=== PATIENT | female | born 1950 | race Caucasian/White ===

== ENCOUNTER → 2017-06-06 | Outpatient (CLI) | payer MEDICARE ==
--- NOTE | 2017-06-09 09:58 | MM ---
Reason for exam: screening (asymptomatic). Last mammogram was performed 1 year and 7 months ago. History: Patient is postmenopausal. Family history of breast cancer in mother at age 60. Benign cyst aspiration of the left breast, 1989. Physical Findings: A clinical breast exam by your physician is recommended on an annual basis and results should be correlated with mammographic findings. MG 3D Screening Mammo W/Cad Bilateral CC and MLO view(s) were taken. Prior study comparison: November 16, 2015, bilateral MG 3d screening mammo w/cad. October 10, 2014, bilateral MG diagnostic mammo w CAD [facility]. There are scattered fibroglandular densities. Finding: There are typically benign round calcifications in both breasts. There is no discrete abnormality. ASSESSMENT: Benign, BI-RAD 2 RECOMMENDATION: Routine screening mammogram of both breasts in 1 year.
== END | disposition home or self-care (01) ==
LOC: RADMAMWWP 11:05
PROVIDERS: ATTEND Family Medicine
DX: Z12.31 Encounter for screening mammogram for malignant neoplasm of breast (principal)
CPT/HCPCS: 77063; 77067

== ENCOUNTER → 2017-07-25 | Outpatient (CLI) | payer MEDICARE | END | disposition home or self-care (01) | LOC: MMGSC 11:52 | PROVIDERS: ATTEND Family Medicine | DX: R31.9 Hematuria, unspecified (principal) | CPT/HCPCS: 87086 ==

== ENCOUNTER → 2017-07-30 | Outpatient (CLI) | payer MEDICARE ==
[2017-07-30 14:49] LABS: Blood Urea Nitrogen 20 mg/dL (7-17)
--- NOTE | 2017-07-30 17:13 | CT ---
EXAMINATION TYPE: CT chest abdomen w con DATE OF EXAM: 07/30/2017 COMPARISON: NONE HISTORY: Pulmonary nodule, Rt renal cyst CT DLP: 1955 mGycm. Automated Exposure Control for Dose Reduction was Utilized. CONTRAST: CT scan of the thorax, abdomen performed with IV Contrast, patient injected with 100 mL of Isovue 300 . FINDINGS: LUNGS: The lungs are stable, there is no concerning parenchymal mass or nodule identified, findings a re benign. There is no pleural effusion or pneumothorax seen. The tracheobronchial tree is patent. MEDIASTINUM: There are no greater than 1 cm hilar or mediastinal lymph nodes. No pericardial effusi on is seen. OTHER: Enlarged right low dense thyroid nodule noted incidentally. LIVER/GB: No liver shows low atten uation likely due to fatty infiltration, the liver is borderline enlarged. PANCREAS: No significant abnormality is seen. SPLEEN: No significant abnormality is seen. ADRENALS: Nodular appearance of left adrenal gland is stable. KIDNEYS: There is a cortical cyst prese nt within the right kidney measuring approximately 3.3 cm in greatest dimension. Smaller cyst present posteriorly measures 12 mm BOWEL: No significant abnormality is seen. GENITAL ORGANS: No gross abnormality seen. LYMPH NODES: No greater than 1cm abdominal or pelvic lymph nodes are appreciated. OSSEOUS STRUCTURES: Sclerotic density particularly joints compatible stress images. OTHER: No signifi cant additional abnormality is seen. IMPRESSION: Essentially stable exam.
== END ==
LOC: RADCTMAIN 14:13
PROVIDERS: ATTEND Family Medicine
DX: N28.1 Cyst of kidney, acquired (principal); R91.1 Solitary pulmonary nodule
CPT/HCPCS: 82565; 84520; 71260; 74160; 36415; Q9967

== ENCOUNTER → 2017-08-08 | Outpatient (CLI) | payer MEDICARE ==
--- NOTE | 2017-08-08 13:28 | US ---
EXAMINATION TYPE: US thyroid st tissue head/neck DATE OF EXAM: 08/08/2017 COMPARISON: CT CLINICAL HISTORY: E04.1 thyroid nodule. Thyroid nodule seen, right lobe on CT Large pt body habitus, unable to lie flat, with cough....difficult exam GLAND SIZE: Right Lobe: 4.2 x 2.9 x 2.9 cm Overall Parenchyma: heterogenous Left Lobe: 3.4 x 1.3 x 1.3 cm Overall Parenchyma: heterogeneous Isthmus Thickness: 0.3 cm NODULES RIGHT: # of nodules measured on right: 1 1. 3.2 X 2.4 x 2.3 cm isoechoic solid nodule at the mid pole with well-defined margins; This nodule is wider than tall and shows intranodular vascularity. Prior size: No prior US Bilateral neck scanned, no evidence of lymphadenopathy. Large right lobe thyroid nodule IMPRESSION: Solid and somewhat heterogenous nodule right thyroid lobe. Consider tissue diagnosis.
== END | disposition home or self-care (01) ==
LOC: RADUSWWP 13:01
PROVIDERS: ATTEND Family Medicine
DX: E04.1 Nontoxic single thyroid nodule (principal)
CPT/HCPCS: 76536

== ENCOUNTER 2017-08-28 09:48 | Day surgery (SDC) | payer MEDICARE ==
[2017-08-28 10:08] VITALS: BP 156/67; PULSE 81; RESP 20; TEMP 97.8
--- NOTE | 2017-08-28 13:15 | US ---
EXAMINATION TYPE: US FNA thyroid DATE OF EXAM: 08/28/2017 COMPARISON: NONE HISTORY: Thyroid nodule. Maximal barrier technique was utilized. After informed consent, skin overlying the lesion was locali zed with ultrasound and the overlying skin prepped and draped. Ultrasound was utilized using sterile technique. Lidocaine was used for local anesthesia. Five passes with a 25-gauge needle were made int o the nodule and aspirated specimen was submitted to cytology. Following the procedure hemostasis ac hieved. No immediate complication. The patient discharged in stable condition. IMPRESSION: STATUS POST ULTRASOUND GUIDED FINE NEEDLE ASPIRATION OF THYROID NODULE, PATHOLOGY IS PEND ING. THIS PROCEDURE WAS PERFORMED BY THE UNDERSIGNED.
== END 2017-08-28 11:25 | disposition home or self-care (01) ==
LOC: RADPROMAIN 09:48
PROVIDERS: ATTEND Otolaryngology
DX: E04.1 Nontoxic single thyroid nodule (principal)
CPT/HCPCS: 10022; 76942; 88173; 88305

== ENCOUNTER → 2018-03-02 | Outpatient (CLI) | payer MEDICARE ==
--- NOTE | 2018-03-02 11:15 | US ---
EXAMINATION TYPE: US thyroid st tissue head/neck DATE OF EXAM: 03/02/2018 COMPARISON: US 08/28/2017 CLINICAL HISTORY: E04.1 Thyroid nodule Rt. Prior right thyroid FNA GLAND SIZE: Right Lobe: 4.4 x 2.6 x 2.7 cm Overall Parenchyma: heterogenous Left Lobe: 3.5 x 1.2 x 1.5 cm Overall Parenchyma: heterogeneous Isthmus Thickness: 0.6 cm NODULES RIGHT: # of nodules measured on right: 1 1. 3.2 X 2.4 x 2.7 cm isoechoic mixed nodule at the mid and lower pole with well-defined margins. This nodule is taller than wide and shows intranodular vascularity. Prior size: 3.2 x 2.4 x 2.3 cm LEFT: # of nodules measured on left: 0 ISTHMUS: # of nodules measured in the isthmus: 0 Bilateral neck scanned: no evidence of lymphadenopathy. IMPRESSION: Stable nonspecific right-sided thyroid nodularity.
== END | disposition home or self-care (01) ==
LOC: RADUSWWP 10:11
PROVIDERS: ATTEND Otolaryngology
DX: E04.1 Nontoxic single thyroid nodule (principal)
CPT/HCPCS: 76536

== ENCOUNTER → 2018-07-07 | Outpatient (CLI) | payer MEDICARE ==
[2018-07-07 13:04] VITALS: BP 181/91; PULSE 72; RESP 18; TEMP 96.9; BMI 48.0
--- NOTE | 2018-07-07 15:02 | P.HPOB ---
History of Present Illness H&P Date: 07/07/18 Chief Complaint: The patient is here for her routine gynecologic exam and mammogram. This is a 68-year-old with an LMP of 2000. The patient is here to establish with this office. She states her last pelvic exam was in 2016. The patient is without gynecologic complaints and denies any postmenopausal bleeding. Review of Systems The patient states she has gained about 20 pounds over the last 2 years. She denies respiratory, cardiac, or G.I. problems. She denies maltreatment or falling. : occasionally she has to get to the bathroom right away or she may leak. She avoids leakage by avoiding prior to traveling or attending an event. Past Medical History Past Medical History: Diabetes Mellitus (Type II diabetes), Hearing Disorder / Deafness, Hyperlipidemia, Hypertension, Musculoskeletal Disorder, Osteoarthritis (OA), Sleep Apnea/CPAP/BIPAP Additional Past Medical History / Comment(s): OCC VERTIGO. USES CPAP. VARICOSE VEINS. LT KNEE INJURY. Seasonal allergies. Overweight. Renal, adrenal, and thyroid nodules which are followed conservatively. PAST ENVIRONMENTAL ENGINEER HISTORY: She has no history of STDs. History of Any Multi-Drug Resistant Organisms: None Reported Past Surgical History: Cholecystectomy, Heart Catheterization, Orthopedic Surgery (Knee surgery), Tonsillectomy, Tubal Ligation Additional Past Surgical History / Comment(s): D&C. Colonoscopy 2018(2nd). Past Anesthesia/Blood Transfusion Reactions: Motion Sickness, Postoperative Nausea & Vomiting (PONV) Additional Past Anesthesia/Blood Transfusion Reaction / Comment(s): VERY SEVERE PONV. Past Psychological History: Depression (Mild) Smoking Status: Former smoker (Quit 2010) Past Alcohol Use History: Occasional (20 per year) Past Drug Use History: None Reported Additional History: She has been since 1966 and is retired. - Past Family History Mother Family Medical History: Cancer Additional Family Medical History / Comment(s): Breast cancer. Brother(s) Family Medical History: Cancer, CVA/TIA Additional Family Medical History / Comment(s): Lung cancer. Father Additional Family Medical History / Comment(s): Alcohol abuse. Medications and Allergies Home Medications Medication Instructions Recorded Confirmed Type Aspirin 81 mg PO BID 12/05/14 07/07/18 History Benazepril HCl 20 mg PO DAILY 12/05/14 07/07/18 History Metoprolol Succinate [Toprol XL] 50 mg PO HS 12/05/14 07/07/18 History Pravastatin Sodium [Pravachol] 20 mg PO HS 12/05/14 07/07/18 History Loratadine [Alavert] 10 mg PO DAILY 08/25/17 07/07/18 History Naproxen 250 mg PO BID PRN 08/25/17 07/07/18 History metFORMIN HCL [Glucophage Xr] 500 mg PO DAILY 08/25/17 07/07/18 History Allergies Allergy/AdvReac Type Severity Reaction Status Date / Time hydromorphone HCl Allergy Nausea & Verified 07/07/18 12:59 [From Dilaudid] Vomiting Exam Vital Signs Temp Pulse Resp BP Pulse Ox 07/07/18 13:01 96.9 F L 72 18 181/91 97 Intake and Output 07/06/18 07/07/18 07/07/18 22:59 06:59 14:59 Other: Weight 127.006 kg Height 5'4", weight 280 pounds, BMI 48.1. This is a well-developed well-nourished obese white female who is alert and oriented times 3 in no acute distress. HEENT: Within normal limits. NECK: Supple without mass or thyromegaly. CHEST AND LUNGS: Clear to auscultation. HEART: Regular rate and rhythm. BREASTS: Are without mass or discharge. AXILLARY EXAM: Negative for adenopathy. BACK: Negative for CVA tenderness. ABDOMEN: Soft, obese, nontender, without palpable masses. PELVIC EXAM: Normal external genitalia with mild atrophy. Cervix and vagina appear normal mild atrophy. There is no unusual discharge. There is no evidence of prolapse. The uterus is midposition, nongravid size and nontender. There are no palpable adnexal masses or tenderness. Bimanual examination is somewhat limited secondary to her size. RECTAL EXAM: rectovaginal vaginal exam is negative for mass or tenderness and is negative for occult blood. EXTREMITIES: Nontender. IMPRESSION: 1. 68-year-old menopausal female with normal gynecologic exam. 2. Obesity. 3. Elevated blood pressure with history of chronic hypertension. PLAN: 1. Pap smear was performed. 2. Self breast awareness was discussed with the patient. 3. Screening mammogram will be done today. 4. Osteoporosis prevention was discussed. I have stressed the importance of adequate calcium, vitamin D and regular exercise. Recommended amounts of calcium and vitamin D were also discussed. Bone density testing was done on and was normal. We will plan on repeating bone density testing in 2020. 5. She did not get a flu shot this year and make it one next fall. 6. She is aware of her elevated blood pressure today. She states she is able to check her own blood pressure at home and have recommended that she do this on a regular basis. She will follow up with her primary care physician if the blood pressure is consistently elevated. 7. She will return in one year.
--- NOTE | 2018-07-09 08:48 | MM ---
Reason for exam: screening (asymptomatic). Last mammogram was performed 1 year and 1 month ago. History: Patient is postmenopausal. Family history of breast cancer in mother at age 60. Benign cyst aspiration of the left breast, 1989. Physical Findings: A clinical breast exam by your physician is recommended on an annual basis and results should be correlated with mammographic findings. MG 3D Screening Mammo W/Cad Bilateral CC and MLO view(s) were taken. Prior study comparison: June 06, 2017, bilateral MG 3d screening mammo w/cad. November 16, 2015, bilateral MG 3d screening mammo w/cad. There are scattered fibroglandular densities. No significant changes when compared with prior studies. ASSESSMENT: Benign, BI-RAD 2 RECOMMENDATION: Routine screening mammogram of both breasts in 1 year.
== END ==
LOC: WWCWWP 12:25
PROVIDERS: ATTEND Obstetrics & Gynecology
DX: Z12.31 Encounter for screening mammogram for malignant neoplasm of breast (principal)
CPT/HCPCS: 77063; 77067

== ENCOUNTER → 2018-09-16 | Outpatient (CLI) | payer MEDICARE ==
--- NOTE | 2018-09-16 11:53 | US ---
EXAMINATION TYPE: US thyroid st tissue head/neck DATE OF EXAM: 09/16/2018 COMPARISON: NONE CLINICAL HISTORY: 68-year-old female E04.1 thyroid nodule. TECHNIQUE: Multiple sonographic images of the thyroid are obtained. FINDINGS: GLAND SIZE: Right Lobe: 4.6 x 2.7 x 3.0 cm Overall Parenchyma: heterogenous Left Lobe: 3.1 x 0.9 x 1.4 cm Overall Parenchyma: homogeneous Isthmus Thickness: 0.3 cm NODULES RIGHT: # of nodules measured on right: 1 1. 3.4 X 2.6 x 2.5 cm isoechoic mixed nodule at the mid/lower pole with well-defined margins; . Th is nodule is wider than tall and shows intranodular vascularity. Prior size: 3.2 x 2.7 x 2.4 cm LEFT: # of nodules measured on left: 0 ISTHMUS: # of nodules measured in the isthmus: 0 Bilateral neck scanned, no evidence of lymphadenopathy. IMPRESSION: A large 3.4 cm heterogeneous nodule in the right lobe remains relatively stable from 03/02/2018.
== END | disposition home or self-care (01) ==
LOC: RADUSWWP 10:32
PROVIDERS: ATTEND Otolaryngology
DX: E04.1 Nontoxic single thyroid nodule (principal)
CPT/HCPCS: 76536

== ENCOUNTER → 2018-09-16 | Outpatient (CLI) | payer MEDICARE ==
--- NOTE | 2018-09-16 12:22 | XR ---
EXAMINATION TYPE: XR KUB DATE OF EXAM: 09/16/2018 COMPARISON: NONE HISTORY: Left-sided kidney stone TECHNIQUE: One view abdominal series FINDINGS: The osseous structures are intact. The bowel gas pattern is nonspecific. Hypertrophic and degenerati ve change of the spine noted. Arthropathy of the hips. Calcification the pelvis appears vascular. Kidneys: No suspicious calcifications overlying the renal outlines. Surgical clips in the gallbladder fossa. IMPRESSION: 1. No definite suspicious calcification overlying the kidneys.
== END | disposition home or self-care (01) ==
LOC: RADXRMAIN 11:24
PROVIDERS: ATTEND Urology
DX: N20.2 Calculus of kidney with calculus of ureter (principal)
CPT/HCPCS: 74018

== ENCOUNTER → 2019-10-19 | Outpatient (CLI) | payer MEDICARE ==
--- NOTE | 2019-10-19 13:10 | US ---
EXAMINATION TYPE: US thyroid st tissue head/neck DATE OF EXAM: 10/19/2019 COMPARISON: US 09/16/2018 CLINICAL HISTORY: E04.1 thyroid nodule. GLAND SIZE: Right Lobe: 3.9 x 2.3 x 2.6 cm Overall Parenchyma: heterogenous Left Lobe: 3.4 x 1.3 x 1.2 cm Overall Parenchyma: homogeneous Isthmus Thickness: 0.2 cm NODULES RIGHT: # of nodules measured on right: 1 1. 3.5 X 2.1 x 2.5 cm hypoechoic mixed nodule at the mid pole with well-defined margins. This nodu le is wider than tall and shows intranodular vascularity. Prior size: 3.4 x 2.6 x 2.5 cm LEFT: # of nodules measured on left: 0 ISTHMUS: # of nodules measured in the isthmus: 0 Bilateral neck scanned, no evidence of lymphadenopathy. IMPRESSION: No interval increase in an overall size of the right thyroid nodule 3 no new nodules seen .
== END | disposition home or self-care (01) ==
LOC: RADUSWWP 12:26
PROVIDERS: ATTEND Otolaryngology
DX: E04.1 Nontoxic single thyroid nodule (principal)
CPT/HCPCS: 76536

== ENCOUNTER → 2020-04-07 | Outpatient (CLI) | payer MEDICARE ==
--- NOTE | 2020-04-07 12:49 | CTL ---
EXAMINATION TYPE: CT Low Dose Lung DATE OF EXAM ORDERED: 04/07/2020 COMPARISON: 12/07/2015 HISTORY: . Low Dose CT Lung Screening CT DLP: [address] CTDI: 3.29 mGy IV CONTRAST USED: None. SCREENING VISIT: First visit COMPARISON: None. TECHNIQUE: Low dose computed tomography scan was performed through the chest at 1 millimeter thick se ctions and reconstructed images in the coronal plane at [address] DIAGNOSTIC QUALITY: Suboptimal. Limiting streak artifact noted. FINDINGS: LUNG NODULES: There is a new 1 cm pulmonary nodule left upper lobe image 142. Stable 4 mm solid nodul e right upper lobe is noted. Limited evaluation however given the aforementioned technical limitation s. LUNGS: COPD: Severity: None Fibrosis: Severity:None Lymph nodes: None Other findings: None RIGHT PLEURAL SPACE: Effusion: None Calcification: None Thickening: None Pneumothorax: None LEFT PLEURAL SPACE: Effusion: None Calcification: None Thickening: None Pneumothorax: None HEART: Heart Size: Mildly enlarged Coronary calcification: Mild Pericardial effusion: None OTHER FINDINGS: Upper abdomen: Left adrenal nodule is again identified and may reflect adenoma. Bony thorax: Degenerative changes Supraclavicular region: No significant abnormalityOther: No significant abnormalityI IMPRESSION: 1. Limited study as noted above given tube limiting artifact. 2. New solid nodule left upper lobe. Consider [address] or PET/CT for further evaluation. FOLLOW UP CT CHEST CT LUNG RAD: LUNG RAD CATEGORY suspicious 4A
== END | disposition home or self-care (01) ==
LOC: RADCTMAIN 12:06
PROVIDERS: ATTEND Family Medicine
DX: Z12.2 Encounter for screening for malignant neoplasm of respiratory organs (principal); R91.1 Solitary pulmonary nodule; Z87.891 Personal history of nicotine dependence

== ENCOUNTER → 2020-06-24 | Outpatient (CLI) | payer MEDICARE ==
--- NOTE | 2020-06-30 08:49 | PE ---
EXAMINATION TYPE: PET CT fusion skull to thigh DATE OF EXAM: 06/24/2020 COMPARISON: Low-dose CT 04/07/2020 Prior PET/CT: None HISTORY: Solitary pulmonary nodule TECHNIQUE: Following the intravenous administration of 12.43 mCi of F-18 FDG, whole body images are performed from the skull base to the midthigh. Images are reviewed on the computer in the coronal, a xial, and sagittal planes. Reconstructed rotating images are created on independent workstation and reviewed on the computer. A localization and attenuation correction CT is performed in conjunction with the PET scan. DLP: 588.02 mGycm SCAN: Initial Blood glucose: 157 mg/dL Average Mediastinum SUV: 1.62 Average Liver SUV: 2. FINDINGS: NECK: No abnormal uptake THORAX: The nodule within the lingular base near the major fissure, image 101, has an SUV value 0.69. No additional nodules are identified. No suspicious radiotracer within the thorax is evident. No me diastinal or hilar nodes are evident. ABDOMEN: No abnormal uptake PELVIS: No abnormal uptake OSSEOUS STRUCTURES: No abnormal LOCALIZATION CT: A 0.9 cm lingular nodule remains present. Series 3 image 101 COMPARISON: Nodule appears stable from comparison IMPRESSION: 1. No suspicious uptake to suggest neoplasm. 2. Persistent nodule within the lingula can be followed by CT chest.
== END | disposition home or self-care (01) ==
LOC: RADPETMAIN 09:05
PROVIDERS: ATTEND Family Medicine
DX: R91.1 Solitary pulmonary nodule (principal)
CPT/HCPCS: 78815; A9552

== ENCOUNTER → 2020-12-04 | Outpatient (CLI) | payer MEDICARE ==
--- NOTE | 2020-12-04 18:40 | US ---
EXAMINATION TYPE: US thyroid st tissue head/neck DATE OF EXAM: 12/04/2020 COMPARISON: 10/19/2019 US CLINICAL HISTORY: 70-year-old female E04.1 Thyroid nodule. GLAND SIZE: Right Lobe: 3.9 x 2.4 x 2.7 cm Overall Parenchyma: heterogenous Left Lobe: 3.0 x 0.9 x 1.0 cm Overall Parenchyma: heterogeneous Isthmus Thickness: 0.5 cm NODULES RIGHT: # of nodules measured on right: 1 1. 2.7 X 2.2 x 2.0 cm, mid , solid or almost completely solid, hypoechoic nodule, which is wider th an tall, with smooth margins, without echogenic foci. Prior size: 3.5 x 2.1 x 2.5 cm LEFT: # of nodules measured on left: 0 ISTHMUS: # of nodules measured in the isthmus: 0 Bilateral neck scanned, no evidence of lymphadenopathy. IMPRESSION: Solitary, solid 2.7 cm nodule in the right lobe measures slightly smaller from 10/19/2019 where it jason ured up to 3.5 cm. The overall thyroid gland is small, possibly secondary to chronic hypothyroidism. Clinically correlate.
== END | disposition home or self-care (01) ==
LOC: RADUSWWP 10:35
PROVIDERS: ATTEND Otolaryngology
DX: E04.1 Nontoxic single thyroid nodule (principal)
CPT/HCPCS: 76536

== ENCOUNTER → 2020-12-29 | Outpatient (CLI) | payer MEDICARE ==
--- NOTE | 2021-01-01 10:50 | MM ---
Reason for exam: screening (asymptomatic). Last mammogram was performed 2 years and 6 months ago. History: Patient is postmenopausal. Family history of breast cancer in mother at age 60. Benign cyst aspiration of the left breast, 1989. Physical Findings: A clinical breast exam by your physician is recommended on an annual basis and results should be correlated with mammographic findings. MG 3D Screening Mammo W/Cad Bilateral CC and MLO view(s) were taken. Prior study comparison: July 07, 2018, bilateral MG 3d screening mammo w/cad. June 06, 2017, bilateral MG 3d screening mammo w/cad. There are scattered fibroglandular densities. There is no discrete abnormality. No significant changes when compared with prior studies. ASSESSMENT: Negative, BI-RAD 1 RECOMMENDATION: Routine screening mammogram of both breasts in 1 year.
== END | disposition home or self-care (01) ==
LOC: RADMAMWWP 09:04
PROVIDERS: ATTEND Family Medicine
DX: Z12.31 Encounter for screening mammogram for malignant neoplasm of breast (principal); Z80.3 Family history of malignant neoplasm of breast
CPT/HCPCS: 77063; 77067

== ENCOUNTER → 2021-02-23 | Outpatient (CLI) | payer MEDICARE ==
[2021-02-23 09:54] LABS: African American GFR (CKD) >90 (>60 ml/min/1.73 sqM); Blood Urea Nitrogen 22 mg/dL (7-17); Non-African American GFR(CKD) 89 (>60 ml/min/1.73 sqM)
--- NOTE | 2021-02-23 11:21 | CT ---
EXAMINATION TYPE: CT chest w con DATE OF EXAM: 02/23/2021 COMPARISON: 07/30/2017 HISTORY: SPN CT DLP: 1588.40 mGycm, Automated exposure control for dose reduction was used. CONTRAST: Performed injected with 100 ml mL of Isovue 300. TECHNIQUE: Axial images were obtained at 5 mm thick sections. Reconstructed images are reviewed on [facility] computer in the coronal plane. FINDINGS: Right lobe thyroid has a heterogenous slightly hypoechoic area measuring 2.4 x 1.7 cm. This was present previously. This could be further evaluated with ultrasound. There is a 0.4 cm nodule within the posterior lateral right apex. Series 4 image 11. This has enlarge d over the interval. There is a spiculated density within the lingula measuring 1.0 x 1.4 cm. Series 4 image 29. Previous measurements 0.9 x 1.5 cm. No enlarged mediastinal or hilar adenopathy is evident. The ascending aorta diameter at the level o f the main pulmonary artery is 3.4 cm. The main pulmonary artery diameter at the bifurcation is 2.[address] sections are obtained through the upper abdomen. There is a 2.8 cm nodule extending from [facility] posterior lateral left adrenal gland. This was present previously measuring 2.[address] with adrena l protocol could be utilized for closer evaluation. There is noted the gallbladder is surgically abse nt. IMPRESSIONS: 1. There is a new 0.4 cm nodule posterior lateral right apex. Short-term follow-up in 6 months is rec ommended. 2. Slight enlargement of the left adrenal gland. This could be further evaluated with CT with adrenal protocol. 3. Heterogenous right lobe thyroid. Consider ultrasound to reevaluate this finding.
== END | disposition home or self-care (01) ==
LOC: RADCTMAIN 08:42
PROVIDERS: ATTEND Family Medicine
DX: R91.1 Solitary pulmonary nodule (principal)
CPT/HCPCS: 82565; 84520; 71260; 36415; Q9967

== ENCOUNTER → 2021-09-26 | Outpatient (CLI) | payer MEDICARE ==
--- NOTE | 2021-09-26 12:25 | CT ---
EXAMINATION TYPE: CT chest wo con DATE OF EXAM: 09/26/2021 COMPARISON: 02/23/2021 HISTORY: Lung Nodule CT DLP: 893.4 mGycm. Automated Exposure Control for Dose Reduction was Utilized. TECHNIQUE: CT scan of the thorax is performed without IV contrast. FINDINGS: LUNGS: 1.4 x 1 cm left upper lobe nodule stable. Mild emphysematous changes noted. 4 mm nodule right lung apex stable. No pleural effusion or pneumothorax. No focal pneumonia.. MEDIASTINUM: Lack of IV contrast is noted to limit evaluation for mediastinal and especially hilar ad enopathy. There are no definitive greater than 1 cm hilar or mediastinal lymph nodes. Atherosclerotic change aorta. Coronary artery calcium heart size normal. OTHER: Persistent 2.4 cm right thyroid nodule. No which likely is a persistent hypertrophic and degen erative changes spine. Surgical clips gallbladder fossa. There is a persistent nodule adjacent to lef t adrenal gland measuring 2.5 cm on which appears similar to the prior exam of 2018. Hepatic granulom a. IMPRESSION: 1. There are bilateral pulmonary nodules. Largest measures 1.4 cm. This is increased in size from the 13th exam of 2020 where the maximal dimension measured 1 cm. Recommend repeat PET scan. 2. Stable right thyroid nodule. 3. Stable left upper abdominal soft tissue nodule unchanged thousand 8
== END | disposition home or self-care (01) ==
LOC: RADCTMAIN 11:03
DX: R91.1 Solitary pulmonary nodule (principal)
CPT/HCPCS: 71250

== ENCOUNTER → 2022-03-20 | Outpatient (CLI) | payer MEDICARE ==
--- NOTE | 2022-03-20 10:22 | CT ---
EXAMINATION TYPE: CT chest wo con DATE OF EXAM: 03/20/2022 COMPARISON: 09/26/2021 HISTORY: Solitary Pulmonary Nodule CT DLP: [address] of the chest was performed with lung and mediastinal window settings submitted. The la ck of contrast limits evaluation of the vascular, mediastinal and parenchymal structures including th e upper abdomen. LUNGS: Stable left upper lobe pulmonary nodule measuring 1.4 x 1.0 cm within the lingula. No new pulm onary nodules identified at this time. No evidence for infiltrate or volume loss. No pleural effusion . MEDIASTINUM/TONNY: Thoracic aorta is of normal caliber with limited evaluation given lack of contrast . The heart is not enlarged. No evidence for mediastinal mass. No lymph nodes greater than 1cm. UPPER ABDOMEN: Stable probable left adrenal adenoma. OTHER: No significant other abnormality. IMPRESSION: 1. Stable lingular common or nodule. Correlate with PET/CT. Stability over a two-year timeframe shou ld be documented radiographically.
== END | disposition home or self-care (01) ==
LOC: RADCTMAIN 09:34
PROVIDERS: ATTEND Thoracic Surgery (Cardiothoracic Vascular Surgery)
DX: R91.1 Solitary pulmonary nodule (principal)
CPT/HCPCS: 71250

== ENCOUNTER → 2022-09-23 | Outpatient (CLI) | payer MEDICARE ==
--- NOTE | 2022-09-23 09:03 | USB ---
Reason for Exam: Clinical finding. Patient History: Menarche at age 12. First Full-Term at age 17. Postmenopausal. 1989, Benign Cyst Aspiration on the left side. Mother had breast cancer, age 60. Risk Values: Rayna 5 year model risk: 3.3%. NCI Lifetime model risk: 8.4%. Technique: Method: Whole Breast Handheld. Prior Study Comparison: 07/07/2018 Bilateral Screening Mammogram, [facility]. 12/29/2020 Bilateral Screening Mammogram, [facility]. 07/16/2022 Bilateral MG 3D screening mammo w/cad, [facility]. Findings: The whole breast of the left breast, the area of palpable concern of the left breast, the axilla of the left breast and the retroareolar of the left breast were scanned. There is a tiny hypodensity which appears nearly anechoic measuring 0.2 x 0.2 x 0.2 cm. This may be a cyst too small to further classify. Follow-up in 6 months can be performed. At the palpable abnormality there is a hyperechoic area measuring 0.8 x 0.9 x 0.5 cm. Small lipoma may be present at this location. This could be monitored in 6 months. No suspicious spiculated or shadowing masses identified. A follow-up left breast mammogram in 3 months from last exam can be performed. Earlier diagnostic workup can be performed for changing clinical findings. Overall Assessment: Probably benign, BI-RAD 3 Management: Diagnostic Mammogram of the left breast in 2 months. Diagnostic Breast Ultrasound of the left breast in 6 months. A clinical breast exam by your physician is recommended on an annual basis and results should be correlated with mammographic findings. This exam should not preclude additional follow-up of suspicious palpable abnormalities. Results were given to the patient verbally at the time of exam. Electronically signed and approved by: Kirit Fournier D.O. Radiologis
== END | disposition home or self-care (01) ==
LOC: RADMAMWWP 07:28
PROVIDERS: ATTEND Family Medicine
DX: N63.20 Unspecified lump in the left breast, unspecified quadrant (principal); Z78.0 Asymptomatic menopausal state; Z80.3 Family history of malignant neoplasm of breast

== ENCOUNTER → 2023-02-13 | Outpatient (CLI) | payer MEDICARE ==
--- NOTE | 2023-02-13 11:06 | MM ---
Reason for Exam: Additional evaluation requested from prior study. Last screening mammogram was performed 7 month(s) ago. Patient History: Menarche at age 12. First Full-Term at age 17. Postmenopausal. 1989, Benign Cyst Aspiration on the left side. Mother had breast cancer, age 60. Risk Values: Rayna 5 year model risk: 3.3%. NCI Lifetime model risk: 8.4%. Prior Study Comparison: 11/16/2015 Bilateral Screening Mammogram, [facility]. 06/06/2017 Bilateral Screening Mammogram, [facility]. 07/07/2018 Bilateral Screening Mammogram, [facility]. 12/29/2020 Bilateral Screening Mammogram, [facility]. 07/16/2022 Bilateral MG 3D screening mammo w/cad, [facility]. Tissue Density: Left: There are scattered fibroglandular densities. Findings: Analyzed By CAD. Unchanged focal secretory calcifications upper outer quadrant left breast. No significant change from prior exams. Short interval follow-up for the patient's previous probably benign ultrasound findings. Overall Assessment: Probably benign, BI-RAD 3 Management: Diagnostic Mammogram of both breasts in 6 months. Diagnostic Breast Ultrasound of the left breast in 6 months. 1. Reassess the previous 10:00 ultrasound findings at the time of the patient's annual follow-up. 2. Patient should continue monthly self breast exams. 3. See note below in regards to patient's increased 5 year Rayna score. A Rayna score greater than 3% is considered moderate risk. If this is the case, consider specialist referral to assess eligibility for a risk reducing agent. Electronically signed and approved by: Matt Parks M.D. Radiologist
== END | disposition home or self-care (01) ==
LOC: RADMAMWWP 10:02
PROVIDERS: ATTEND Family Medicine
DX: R92.8 Other abnormal and inconclusive findings on diagnostic imaging of breast (principal); Z78.0 Asymptomatic menopausal state; Z80.3 Family history of malignant neoplasm of breast
CPT/HCPCS: 77061; 77065

== ENCOUNTER → 2023-08-26 | Outpatient (CLI) | payer MEDICARE ==
--- NOTE | 2023-08-26 09:52 | MM ---
Reason for Exam: Additional evaluation requested from prior study. Last mammogram was performed 1 year(s) and 1 month(s) ago. Patient History: Menarche at age 12. First Full-Term at age 17. Postmenopausal. Patient used Hormonal Contraceptives for 10 years. 1989, Benign Cyst Aspiration on the left side. Mother had breast cancer, age 60. Risk Values: Rayna 5 year model risk: 3.3%. NCI Lifetime model risk: 7.9%. Prior Study Comparison: 03/06/2011 Screening Mammogram, [facility]. 02/25/2012 Screening Mammogram, [facility]. 11/30/2013 Screening Mammogram, [facility]. 04/22/2014 Right Diagnostic Ultrasound, [facility]. 10/10/2014 Bilateral Diagnostic Mammogram, [facility]. 10/10/2014 Bilateral Diagnostic Ultrasound, [facility]. 11/16/2015 Bilateral Screening Mammogram, [facility]. 06/06/2017 Bilateral Screening Mammogram, [facility]. 07/07/2018 Bilateral Screening Mammogram, [facility]. 12/29/2020 Bilateral Screening Mammogram, [facility]. 07/16/2022 Bilateral MG 3D screening mammo w/cad, [facility]. 09/23/2022 Left US breast LT, [facility]. 02/13/2023 Left MG 3D diag mammo w/cad LT, [facility]. Tissue Density: There are scattered areas of fibroglandular density. Findings: Analyzed By CAD. Secretory calcifications anterior medial left breast and lateral middle depth left breast remain unchanged but are noted to have gradually progressed compared to older priors. No significant change from prior exams. Overall Assessment: Incomplete: need additional imaging evaluation, BI-RAD 0 Management: Diagnostic Breast Ultrasound of the left breast. As follow-up from the previous recommendation for the 10:00 position. Electronically signed and approved by: Matt Parks M.D. Radiologist
--- NOTE | 2023-08-26 10:19 | USB ---
Reason for Exam: Follow-up at short interval from prior study. Patient History: Menarche at age 12. First Full-Term at age 17. Postmenopausal. Patient used Hormonal Contraceptives for 10 years. 1989, Benign Cyst Aspiration on the left side. Mother had breast cancer, age 60. Risk Values: Rayna 5 year model risk: 3.3%. NCI Lifetime model risk: 7.9%. Technique: Method: Targeted. Prior Study Comparison: 12/29/2020 Bilateral Screening Mammogram, [facility]. 07/16/2022 Bilateral MG 3D screening mammo w/cad, [facility]. 02/13/2023 Left MG 3D diag mammo w/cad , [facility]. Findings: The medial section of the breast of the left breast, the axilla of the left breast and the retroareolar of the left breast were scanned. Targeted ultrasound from 9:00 to 11:00 including the subareolar region at the left. The previous palpable, echogenic area in the 10:00 position is no longer seen. The previous tiny 2 mm cyst is also no longer seen. Overall Assessment: Benign, BI-RAD 2 Management: Screening Mammogram of both breasts in 1 year. Note on Rayna scores and lifetime risk: 1. A Rayna score greater than 3% is considered moderate risk. If this is the case, consider specialist referral to assess eligibility for a risk reducing agent. 2. If overall lifetime risk for the development of breast cancer is 20% or higher, the patient may qualify for future screening with alternating mammogram and breast MRI. A clinical breast exam by your physician is recommended on an annual basis and results should be correlated with mammographic findings. This exam should not preclude additional follow-up of suspicious palpable abnormalities. Results were given to the patient verbally at the time of exam. Electronically signed and approved by: Matt Parks M.D. Radiologist
== END | disposition home or self-care (01) ==
LOC: RADMAMWWP 09:04
PROVIDERS: ATTEND Family Medicine
DX: R92.323 Mammographic fibroglandular density, bilateral breasts (principal); Z78.0 Asymptomatic menopausal state; Z80.3 Family history of malignant neoplasm of breast
CPT/HCPCS: 77062; 77066

== ENCOUNTER → 2024-09-08 | Outpatient (CLI) | payer MEDICARE ==
--- NOTE | 2024-09-08 10:29 | MM ---
Reason for Exam: Screening (asymptomatic). Last screening mammogram was performed 12 month(s) ago. Patient History: Menarche at age 12. First Full-Term at age 17. Postmenopausal. Patient used Hormonal Contraceptives for 10 years. 1989, Benign Cyst Aspiration on the left side. Mother had breast cancer, age 60. Risk Values: Rayna 5 year model risk: 3.3%. NCI Lifetime model risk: 7.5%. Prior Study Comparison: 07/16/2022 Bilateral MG 3D screening mammo w/cad, [facility]. 02/13/2023 Left MG 3D diag mammo w/cad LT, [facility]. 08/26/2023 Bilateral MG 3D diag mammo w/cad [place], [facility]. Tissue Density: There are scattered areas of fibroglandular density. Findings: Analyzed By CAD. There are some small benign-appearing round and linear calcifications bilaterally redemonstrated. There is no suspicious group of microcalcifications or new suspicious mass in either breast. Overall Assessment: Benign, BI-RAD 2 Management: Screening Mammogram of both breasts in 1 year. . Patient should continue monthly self-breast exams. A clinical breast exam by your physician is recommended on an annual basis. This exam should not preclude additional follow-up of suspicious palpable abnormalities. Note on Rayna scores and lifetime risk: 1. A Rayna score greater than 3% is considered moderate risk. If this is the case, consider specialist referral to assess eligibility for a risk reducing agent. 2. If overall lifetime risk for the development of breast cancer is 20% or higher, the patient may qualify for future screening with alternating mammogram and breast MRI. [facility], , 09/08/2024 10:26 AM. Electronically signed and approved by: Clem Claire M.D.
== END | disposition home or self-care (01) ==
LOC: RADMAMWWP 09:17
PROVIDERS: ATTEND Family Medicine
DX: Z12.31 Encounter for screening mammogram for malignant neoplasm of breast (principal); R92.323 Mammographic fibroglandular density, bilateral breasts; Z78.0 Asymptomatic menopausal state; Z80.3 Family history of malignant neoplasm of breast; Z92.0 Personal history of contraception
CPT/HCPCS: 77063; 77067